=== PATIENT | male | born 1950 | race African-American/Black ===

== ENCOUNTER 2016-10-13 20:09 | Emergency (ER) | payer OTHER ==
[~2016-10-13] VITALS: Ht 177.8 cm; Wt 71.1 kg
[~2016-10-13 20:09] MED LIST: BENZTROPINE MESY1 MG PO; COLACE100 MG PO; DAILY VALUE1 EACH PO; OLANZAPINE10 MG PO; PERCOCET 5/31 TABLET PO; VENLAFAXINE HCL75 MG PO
[2016-10-14] MEDS ORDERED: COGENTIN1 MG PO (02:39)
[2016-10-14] MEDS ORDERED: VENLAFAXINE HCL75 MG PO (02:39)
[2016-10-14] MEDS ORDERED: OLANZAPINE10 MG PO (02:39)
[2016-10-14 03:10] VITALS: BP 133/79
== END 2016-10-14 03:11 | disposition home or self-care (01) ==
LOC: EXP 20:09 → EME 20:09 → EXP 10-14 03:11
DX: F32.9 Major depressive disorder, single episode, unspecified (principal); Z88.0 Allergy status to penicillin
CPT/HCPCS: 99281; 99284

== ENCOUNTER → 2016-12-04 | Outpatient (CLI) | payer OTHER ==
[~2016-12-04] VITALS: Ht 177.8 cm; Wt 157.0 kg
[~2016-12-04] MED LIST changes: +COGENTIN1 MG PO
== END | disposition home or self-care (01) ==
LOC: AMB 10-24 13:00
DX: D12.7 Benign neoplasm of rectosigmoid junction (principal); K44.9 Diaphragmatic hernia without obstruction or gangrene; K29.70 Gastritis, unspecified, without bleeding; K22.8 Other specified diseases of esophagus; R63.4 Abnormal weight loss; D64.9 Anemia, unspecified; Z90.49 Acquired absence of other specified parts of digestive tract; Z80.0 Family history of malignant neoplasm of digestive organs; F32.9 Major depressive disorder, single episode, unspecified; Z88.0 Allergy status to penicillin; Z91.040 Latex allergy status; Z91.012 Allergy to eggs
CPT/HCPCS: 88305; 88342 TC; J2250; J3010

== ENCOUNTER → 2017-01-30 | Outpatient (CLI) | payer MEDICARE, OTHER | END | disposition home or self-care (01) | LOC: CDC 14:09 | DX: Z01.810 Encounter for preprocedural cardiovascular examination (principal); R94.31 Abnormal electrocardiogram [ECG] [EKG] | CPT/HCPCS: 93000 ==

== ENCOUNTER 2017-03-23 22:02 | Inpatient (IN) | payer OTHER ==
[~2017-03-23] VITALS: Ht 177.8 cm; Wt 86.2 kg
[2017-03-24 06:12] VITALS: BP 127/76
[2017-03-24] MEDS ORDERED: CINNAMON500 MG PO (06:31)
[2017-03-24] MEDS ORDERED: ZINC50 M1 PO (06:31)
[2017-03-24] MEDS ORDERED: BIOTIN1000 MCG PO (06:32)
[2017-03-24] MEDS ORDERED: LUTEIN20 MG PO (06:32)
[2017-03-24] MEDS ORDERED: VITAMIN B W/C1 EACH PO (06:33)
[2017-03-24] MEDS ORDERED: CRANBERRY TABL1 EACH PO (06:33)
[2017-03-24] MEDS ORDERED: SAW PALMETTO450 MG PO (06:34)
[2017-03-24] MEDS ORDERED: L-ARGININE1000 MG PO (06:34)
[2017-03-24] MEDS ORDERED: GARLIC OIL1000 MG PO (06:34)
[2017-03-24] MEDS ORDERED: VITAMIN C500 M6 PO (06:35)
[2017-03-24] MEDS ORDERED: ACETYL L-CARNI500 MG PO (06:35)
[2017-03-24] MEDS ORDERED: ACIDOPHILUS1 EAC3 PO (06:36)
[2017-03-24] MEDS ORDERED: VITAMIN D32000 UNI1 PO (06:36)
[2017-03-24] MEDS ORDERED: L-LYSINE1000 M1 PO (06:37)
[2017-03-24] MEDS ORDERED: CENTRUM SILVER1 EAC5 PO (06:37)
[2017-03-24] MEDS ORDERED: MAGNESIUM400 M1 PO (06:37)
[2017-03-24] MEDS ORDERED: VITAMIN E400 UNIT PO (06:38)
[2017-03-24] MEDS ORDERED: ECHINACEA400 MG PO (06:38)
[2017-03-24] MEDS ORDERED: MILK THISTLE175 MG PO (06:38)
[2017-03-24] MEDS ORDERED: FISH OIL 1,2001 EAC3 PO (06:39)
[2017-03-24] MEDS ORDERED: TUMS500 MG PO (06:40)
[2017-03-24] MEDS ORDERED: EXCEDRIN EXTRA1 EACH PO (06:40)
[2017-03-24 08:22] LABS: BASOPHIL COUNT 0.1 K/uL (0-0.1); EOSINOPHIL (%) 1.9 % (0-5); EOSINOPHIL COUNT 0.2 K/uL (0-0.3); HEMATOCRIT 34.5 % (38.0-50.0); IMMATURE GRANULOCYTE (%) 0.3 % (0.0-0.7); INSTRUMENT ABS NEUTROPHIL CT 6.1 K/uL; LYMPHOCYTE COUNT 1.9 K/uL (1.0-2.8); MCH 28.9 PG (29.0-34.0); MCHC 34.2 G/DL (30.0-36.0); MCV 84.6 FL (86-99); MEAN PLAT.VOLUME 10.2 uM^3 (9.0-12.4); MONOCYTE (%) 7.4 % (3-12); MONOCYTE COUNT 0.7 K/uL (0-0.8); NEUTROPHIL (%) 68.8 % (45-76); NEUTROPHIL COUNT 6.1 K/uL (1.8-6.4); PLATELET COUNT 292 K/uL (156-360); RBC DIS.WIDTH-CV 15.1 % (11.8-14.6); RED BLOOD COUNT 4.08 M/uL (4.00-5.50); WHITE BLOOD COUNT 8.8 K/uL (4.1-10.2)
[2017-03-24 08:30] LABS: CHLORIDE 108 mEq/L (99-109)
[2017-03-24 08:31] LABS: POTASSIUM 4.2 mEq/L (3.7-5.4); SODIUM 137 mEq/L (136-147)
[2017-03-24 08:32] LABS: GLUCOSE 98 mg/dL (70-99)
[2017-03-24 08:34] LABS: ANION GAP 7 MEQ/L (2-14)
[2017-03-24 08:36] LABS: GFR ESTIMATE (CALCULATED) > 59 mL/min/
[2017-03-24 08:37] LABS: UREA NITROGEN (BUN) 18 mg/dL (9-23)
[2017-03-24] MEDS ORDERED: PERCOCET 5/31 TABLET PO (10:26)
[2017-03-24 13:28] VITALS: BP 136/65
[2017-03-24 14:43] LABS: HEMATOCRIT 26.7 % (38.0-50.0); MCV 85.3 FL (86-99)
[2017-03-24 15:25] VITALS: BP 131/61
[2017-03-24 21:27] VITALS: BP 108/55
[2017-03-25 00:20] VITALS: BP 115/65
[2017-03-25 04:00] VITALS: BP 124/74
[2017-03-25 08:07] VITALS: BP 106/57
[2017-03-25 09:09] LABS: ANION GAP 4 MEQ/L (2-14); CHLORIDE 106 MEQ/L (99-109); GFR ESTIMATE (CALCULATED) > 59 mL/min/; GLUCOSE 128 mg/dL (70-99); POTASSIUM 4.3 MEQ/L (3.7-5.4); SAMPLE HEMOLYSIS CHECK 0; SAMPLE ICTERIC CHECK 0; SAMPLE LIPEMIA CHECK 0; SODIUM 139 MEQ/L (136-147); UREA NITROGEN (BUN) 22 mg/dL (9-23)
[2017-03-25 11:18] VITALS: BP 104/57
[2017-03-25 12:08] LABS: HEMATOCRIT 24.6 % (38.0-50.0); MCV 86.6 FL (86-99)
[2017-03-25 16:42] VITALS: BP 120/57
[2017-03-26 04:33] VITALS: BP 124/58
[2017-03-26 04:37] VITALS: BP 124/58
[2017-03-26 08:06] VITALS: BP 93/53
[2017-03-26 16:23] VITALS: BP 116/57
[2017-03-27 00:15] VITALS: BP 100/60
[2017-03-27 08:05] VITALS: BP 120/76
[2017-03-27 15:46] VITALS: BP 123/73
[2017-03-27 19:30] VITALS: BP 136/72
[2017-03-27 23:47] VITALS: BP 130/62
[2017-03-28 07:16] VITALS: BP 128/69
[2017-03-28 15:25] VITALS: BP 149/71
[2017-03-28 20:53] VITALS: BP 139/73
[2017-03-28 23:44] VITALS: BP 134/68
[2017-03-29 05:56] LABS: POINT-OF-CARE METER ID UU13113725
[2017-03-29 06:54] VITALS: BP 130/59
[2017-03-29 07:37] VITALS: BP 107/56
[2017-03-29 15:14] VITALS: BP 100/52
[2017-03-29 20:44] VITALS: BP 119/60
[2017-03-29 23:24] VITALS: BP 126/63
[2017-03-30 03:58] VITALS: BP 116/64
[2017-03-30 08:07] VITALS: BP 119/62
[2017-03-30 16:00] VITALS: BP 139/65
[2017-03-30 23:25] VITALS: BP 112/58
[2017-03-31 03:55] VITALS: BP 117/60
[2017-03-31 07:32] VITALS: BP 118/62
[2017-03-31 11:28] VITALS: BP 116/69
== END 2017-03-31 14:03 | disposition home or self-care (01) | DRG 707 ==
LOC: ENRESERV 22:02 → 2SOUTH 03-24 05:32 → ENRESERV 03-24 11:58 → 5EAST 03-24 13:21 → 2SOUTH 03-24 14:13 → 5EAST 03-31 14:03
PROVIDERS: Urology
DX: C61 Malignant neoplasm of prostate (principal); K56.7 Ileus, unspecified; K91.89 Other postprocedural complications and disorders of digestive system; Z80.0 Family history of malignant neoplasm of digestive organs; Z80.42 Family history of malignant neoplasm of prostate; Z83.3 Family history of diabetes mellitus; Z90.49 Acquired absence of other specified parts of digestive tract
CPT/HCPCS: 71020; 80048; 82948; 85014; 85018; 85025; 88305; 88309; 94799; J0690; J1100; J1170; J1580; J1885; J2250; J2270; J2405; J2710; J2765; J3010; J7120

== ENCOUNTER → 2017-08-11 | Outpatient (CLI) | payer OTHER ==
[~2017-08-11] MED LIST changes: +ACETYL L-CARNI500 MG PO; +ACIDOPHILUS1 EAC3 PO; +BIOTIN1000 MCG PO; +CENTRUM SILVER1 EAC5 PO; +CINNAMON500 MG PO; +CRANBERRY TABL1 EACH PO; +ECHINACEA400 MG PO; +EXCEDRIN EXTRA1 EACH PO; +FISH OIL 1,2001 EAC3 PO; +GARLIC OIL1000 MG PO; +L-ARGININE1000 MG PO; +L-LYSINE1000 M1 PO; +LUTEIN20 MG PO; +MAGNESIUM400 M1 PO; +MILK THISTLE175 MG PO; +SAW PALMETTO450 MG PO; +TUMS500 MG PO; +VITAMIN B W/C1 EACH PO; +VITAMIN C500 M6 PO; +VITAMIN D32000 UNI1 PO; +VITAMIN E400 UNIT PO; +ZINC50 M1 PO
== END | disposition home or self-care (01) ==
LOC: NUC 10:00
DX: M47.896 Other spondylosis, lumbar region (principal)
CPT/HCPCS: 78306; A9503